=== PATIENT | female | born 1980 | race Caucasian/White ===

== ENCOUNTER 2017-07-10 06:00 | Inpatient (IN) ==
[2017-07-10] MEDS ORDERED: METHYLERGONOVINE 0.2 MG/ML INJECTION IM PRN (06:23)
[2017-07-10] MEDS ORDERED: LIDOCAINE 1% (10mg/ml) 2mL INJ PF SDV ID PRN (06:23)
[2017-07-10] MEDS ORDERED: OXYTOCIN DRIP 30 UNIT/500 ML ML IV PRN (06:23)
[2017-07-10] MEDS ORDERED: CARBOPROST 250 MCG/ML INJECTION IM PRN (06:23)
[2017-07-10] MEDS ORDERED: ACETAMINOPHEN 500 MG TABLET PO PRN ×2 (06:23→18:31)
[2017-07-10] MEDS ORDERED: CALCIUM CARBONATE Chewable 500mg TABLET PO PRN ×2 (06:23→18:31)
[2017-07-10] MEDS ORDERED: MAG-AL + SIM ORAL LIQUID 30ml PO PRN ×2 (06:23→18:31)
[2017-07-10] MEDS ORDERED: D5LR 1,000 ML IV PRN (06:23)
[2017-07-10 07:07] VITALS: BMI 36.5
--- NOTE | 2017-07-10 07:26 | Anesthesia Preoperative Report ---
Anesthesia Epidural/Spinal Rec - Date and Time Date: 07/10/17 Procedure: Labor Epidural Plan: Epidural - Vital Signs Vital Signs: Temperature 97.6 F 07/10/17 06:55 Pulse Rate 78 07/10/17 06:55 Respiratory Rate 16 07/10/17 06:55 Blood Pressure 143/94 H 07/10/17 06:55 Pulse Oximetry 100 07/10/17 06:55 /Para: P:2 - Medictaions & Allergies Inpatient Medications: Current Medications Acetaminophen (Tylenol) 500 - 1,000 mg PO Q4H PRN PRN Reason: Pain Al Hydroxide/Mg Hydroxide (Maalox Plus) 30 ml PO Q3H PRN PRN Reason: Indigestion Calcium Carbonate (Tums) 500 - 1,000 mg PO Q2H PRN PRN Reason: Indigestion Carboprost Tromethamine (Hemabate) 250 mcg IM O PRN PRN Reason: .Downtime Dextrose/Lactated Ringer's (Dextrose 5%-Lactated Ringers) 1,000 mls @ 125 mls/ hr IV .Q8H PRN PRN Reason: Labor Oxytocin (Pitocin Drip) 30 unit in 500 mls @ 2 mls/hr IV .Q24H PRN; Protocol PRN Reason: Induction/Augmentation Lactated Ringer's (Lactated Ringers) 1,000 mls @ 999 mls/hr IV .Q1H1M PRN Lidocaine HCl (Xylocaine-Mpf 1% Vial) 0.2 mg ID O PRN PRN Reason: IV Start Methylergonovine Maleate (Methergine) 0.2 mg IM O PRN Misoprostol (Cytotec) 800 mcg AR ONCE PRN Allergies/Adverse Reactions: Allergies Allergy/AdvReac Type Severity Reaction Status Date / Time NKDA Allergy Unknown Uncoded 01/21/16 00:48 - Home Medications Home Medications: Home Medications Medication Instructions Recorded Confirmed Type Vits W-Ca,Fe,Fa(<1MG) 1 tab PO #0 01/07/13 History () Calcium Carbonate [Tums] #0 01/21/16 History Mag Hydrox/Aluminum Hyd/Simeth #0 01/21/16 History [Maalox Maximum Strength Susp] Norethindrone [Cris] 1 tab PO DAILY #84 01/21/16 History Omeprazole Magnesium [Prilosec Otc] 1 tab PO PRN PRN #0 tab 01/21/16 History - Medical History Cardiovascular: Reports: Hypertension (gestational) Other History: Reports: Now - Surgical History Reproductive Surgery/Treatment: Reports: Other (galbladder 2016) DENIES: Section - Social History Smoking Status: Never smoker Second Hand Exposure: No Substance Use Type: does not use Alcohol Intake Frequency: does not drink - Pertinent Findings Lab Data: CBC and BMP 07/10/17 06:35 EKG Rhythm: Normal Sinus Rhythm - Physical Exam Respiratory Exam: lungs clear Cardiovascular Exam: regular rate and rhythm - Airway Assessment Mallampati Score: II TMD: 3 Fingerbreadths Neck Extension: good Overall Assessment: may be difficult intubation - ASA ASA Score: 2 - Discussion Discussion: Discussed risks/options/alternatives of anesthesia and questions answered. Patient consents. Nursing pain assessment noted. Anesthesia Discussion: spouse Attestation Statement: Prior to the delivery of any anesthetic medication, I examined the patient, developed the plan, obtained the patient's consent and discussed the risk and benefits of the procedure with the patient/guardian.
[2017-07-10] MEDS: LR 1,000 ML IV PRN ×2 (07:48→09:58)
[2017-07-10] MEDS ORDERED: NALOXONE 0.4 MG/ML INJECTION IVP PRN (09:17)
[2017-07-10] MEDS ORDERED: ROPIVACAINE 1% 10MG/ML INJ 200 MG, SUFentanil 50 MCG in NS 100 ML EPI PRN (09:17)
[2017-07-10] MEDS ORDERED: ONDANSETRON 4 MG/2 ML INJECTION IVP PRN (09:17)
[2017-07-10] MEDS ORDERED: DiphenhydrAMINE 50 MG/ML INJECTION IVP PRN (09:17)
[2017-07-10] MEDS ORDERED: HYDROCORTISONE 2.5% CREAM 30gm RECTALLY PRN (18:31)
[2017-07-10] MEDS ORDERED: IBUPROFEN 800 MG TABLET PO PRN (18:31)
--- NOTE | 2017-07-10 20:20 | Labor and Delivery Note ---
DATE OF DELIVERY 07/10/2017 NARRATIVE Ms. Brock came in for her induction of labor due to her preeclampsia with mild features. Her blood pressures were consistent with that through the labor. She progressed well in first stage of labor and began to push with excellent effort at the complete and +2 position. She pushed for a short time, delivering the head in the OP presentation and the baby continued to deliver through. There was a shoulder cord that was reduced after delivery. Baby was then bulb suctioned and placed on mother's abdomen. After about 2-1/2 minutes the cord was doubly clamped and cut by the baby's father care, Conner. This is a liveborn female with Apgars of 8/9/9. She weighed 5 pounds, 12.7 ounces. The placenta subsequently delivered spontaneously intact. It had a normal configuration and a normal-appearing three-vessel cord. There was a superficial periurethral laceration that was hemostatic and was not repaired. There was a first-degree midline laceration that was repaired with a running, nonlocking 2-0 Vicryl. Total blood loss was approximately 300 mL. At the time of this dictation mother and baby are doing well. [facility]
--- NOTE | 2017-07-10 21:22 | Anesthesia Postoperative Note ---
- Date and Time Date: 07/10/17 Time: 21:21 - Status Patient Participated in Evaluation: Patient Participated in Person Vital Signs: Temperature 98.3 F 07/10/17 18:27 Pulse Rate 78 07/10/17 18:27 Respiratory Rate 15 07/10/17 18:27 Blood Pressure 150/78 H 07/10/17 18:27 Pulse Oximetry 100 07/10/17 06:55 Respiratory Function: Airway Patent, Regular Respirations Mental Status: Alert and Oriented Pain Intensity: 0 Hydration: Taking PO Fluids Complications During Recover: None Apparent - Follow-Up Instructions Instructions: Per Surgeon
[2017-07-11] MEDS: DiphenhydrAMINE 25 MG CAPSULE PO PRN ×2 (00:37→20:16)
--- NOTE | 2017-07-11 09:33 | OB/GYN Progress Note ---
OB-PP Progress Note - General PPD1 POD:: POD1 Maternal Group B Strep: Negative Maternal blood type: A+ Maternal Rubella Status: Immune - Subjective Date: 07/11/17 Lochia: Minimal Pain: controlled Voiding: voiding Nausea or Vomiting Present: No - Objective Vital Signs: Last Vital Signs Temp 98.2 F 07/11/17 06:40 Pulse 82 07/11/17 06:40 Resp 18 07/11/17 06:40 BP 159/89 H 07/11/17 06:40 Pulse Ox 98 07/11/17 06:40 Urine Output: good General: alert and oriented Respiratory: non-labored Abdomen: fundus firm, non-tender Extremities: non-tender Side: bilateral Edema Degree: 1+ Laboratory: Laboratory Results - last 24 hr 07/10/17 06:34 Turbidity < 20 Sodium 137 Potassium 3.7 Chloride 106 Carbon Dioxide 20 L Anion Gap 11 BUN 10.0 Creatinine 0.6 L GFR Calculation 114 BUN/Creatinine Ratio 17 Glucose 100 Calculated Osmolality 263 Calcium 8.9 Total Bilirubin 0.20 Conjugated Bilirubin 0.00 Unconjugated Bilirubin 0.00 Icterus Index < 2 AST 25 ALT 28 Alkaline Phosphatase 124 Total Protein 7.2 Albumin 3.6 Globulin 3.6 Albumin/Globulin Ratio 1.0 L Specimen Hemolysis < 15 - Assessment Assessment: SP, , Gestational HTN - Plan Plan: routine care BP levated to upper limit of normal will start 30 mg provardia XR daily.
[2017-07-11] MEDS: DOCUSATE CALCIUM 240 MG CAPSULE PO SCH (10:32)
[2017-07-11] MEDS: HYDROCODONE/APAP 5mg/325mg TABLET PO PRN ×2 (10:33→20:16)
[2017-07-11] MEDS: PRENATAL VITAMIN TABLET PO SCH (10:33)
[2017-07-12 05:42] VITALS: BP 130/73; PULSE 73; RESP 11; TEMP 97.9; O2SAT 99
[2017-07-12] MEDS: DOCUSATE CALCIUM 240 MG CAPSULE PO SCH (09:18)
[2017-07-12] MEDS: PRENATAL VITAMIN TABLET PO SCH (09:18)
--- NOTE | 2017-07-12 09:37 | OB/GYN Progress Note ---
OB-PP Progress Note - General PPD2 Maternal Group B Strep: Negative Maternal blood type: A+ Maternal Rubella Status: Immune - Subjective Date: 07/12/17 Lochia: Minimal Pain: controlled Voiding: voiding Nausea or Vomiting Present: No - Objective Vital Signs: Last Vital Signs Temp 97.9 F 07/12/17 04:50 Pulse 73 07/12/17 04:50 Resp 11 07/12/17 04:50 BP 130/73 07/12/17 04:50 Pulse Ox 99 07/12/17 04:50 Urine Output: good General: alert and oriented Cardiovascular: regular rate,rhythm Respiratory: non-labored Abdomen: fundus firm, non-tender Extremities: non-tender Side: bilateral Site: foot Edema Degree: 2+ Laboratory: Laboratory Results - last 24 hr 07/11/17 07/11/17 20:59 20:59 WBC 11.1 H RBC 3.92 L Hgb 12.2 Hct 36.0 MCV 91.8 MCH 31.1 MCHC 33.9 RDW Std Deviation 43.8 Plt Count 257 MPV 10.8 Immature Gran % (Auto) 0.3 Neut % (Auto) 68.2 H Lymph % (Auto) 21.8 L [place] % (Auto) 5.1 Eos % (Auto) 4.4 H Baso % (Auto) 0.2 Neut # (Auto) 7.6 Lymph # (Auto) 2.4 [place] # (Auto) 0.6 Eos # (Auto) 0.5 Baso # (Auto) 0.0 Abs Immat Gran (auto) 0.03 Turbidity < 20 Sodium 138 Potassium 3.9 Chloride 106 Carbon Dioxide 26 Anion Gap 6 BUN 7.0 Creatinine 0.6 L GFR Calculation 114 BUN/Creatinine Ratio 12 Glucose 105 Calculated Osmolality 264 Calcium 8.7 Total Bilirubin < 0.10 L Icterus Index < 2 AST 28 ALT 29 Alkaline Phosphatase 93 Total Protein 6.3 Albumin 3.1 L Globulin 3.2 Albumin/Globulin Ratio 1.0 L Specimen Hemolysis < 15 - Assessment Assessment: SP, - Plan Plan: routine care, discharge home
== END 2017-07-12 12:15 | disposition home or self-care (01) | DRG 775 ==
LOC: MC 06:15
PROVIDERS: ADMIT Obstetrics & Gynecology; ATTEND Obstetrics & Gynecology